=== PATIENT | male | born 1955 | race Caucasian/White ===

== ENCOUNTER 2018-03-15 14:56 | Outpatient (RCR) | payer OTHER ==
[~2018-03-15 14:56] MED LIST: CETI-176 PO; CIPR250S3 PO; INSTAFLEX PO; KETO5DRO13 OP; LEV25 PO; LEVO-3 PO; PHEN200T32 PO; TAMS0.4C25 PO; [UNRECOGNIZED DRUG - OTHER] PO
--- NOTE | 2018-03-15 22:21 | ONCOLOGY FOLLOW UP NOTE ---
EVENT DATE: March 15, 2018 REASON FOR VISIT Patient is here for oncology surveillance of prostate carcinoma. ONCOLOGY HISTORY 1. Nicole 6 adenocarcinoma of the prostate, replacing 25% of the right middle core biopsy at diagnosis with an elevated PSA of 4.7 ng/mL. 2. Status post external beam radiotherapy to 4500 cGy in 25 fractions with EMRT. 3. Patient received palladium 103 seed implant boost with Dr. Mancera on 12/03/2014. 4. PSA is found undetectable. INTERVAL HISTORY Mr. Navarrete was seen back in Oncology Clinic for followup appointment. I am seeing him on an alternating basis with Dr. Mancera. He is now seen in this clinic once a year. He states he has a good stream. Nocturia times one. Denies any new or persistent bone pain. PSA has progressively fallen since treatment and has now dropped to undetectable. He brought in wellness labs. His liver enzymes and alkaline phosphatase were normal as well. MEDICATIONS 1. Flomax 0.4 mg daily. 2. Levothyroxine 100 mcg q. day. 3. MVI. 4. Zaditor ophthalmic solution daily. 5. Zyrtec tablet p.r.n. SOCIAL HISTORY Employed by [employer]. . COMPREHENSIVE REVIEW OF SYSTEMS Normal. PHYSICAL EXAMINATION GENERAL: Pleasant, 62-year-old male. Medium build. VITAL SIGNS: BP 119/72, pulse 55, respirations 16, O2 sat 93% on room air. Weight 195. LYMPHATICS: No lymphadenopathy. LUNGS: Clear bilaterally. CARDIOVASCULAR: Heart sounds regular with no audible murmur. ABDOMEN: No gross organomegaly. RECTAL: Deferred due to undetectable PSA. EXTREMITIES: No edema or cyanosis. IMPRESSION Excellent therapeutic response to combined external beam radiotherapy and prostate brachytherapy. PLAN Patient will follow up with Dr. Mancera in six months with PSA. I will see him again in a year. Overall, very pleased with his therapeutic response to date. He sees Dr. Solares typically once a year for physical exam and renewal of his thyroid medicine. [facility]
== END 2018-03-30 12:54 | disposition home or self-care (01) ==
LOC: RAON 14:56
PROVIDERS: ATTEND Radiology Radiation Oncology
DX: C61 Malignant neoplasm of prostate (principal); Z92.3 Personal history of irradiation; R35.1 Nocturia
CPT/HCPCS: 99202